=== PATIENT | male | born 1995 ===

== ENCOUNTER 2017-11-26 22:31 | Emergency (ER) | payer SELFPAY ==
[2017-11-26 23:24] VITALS: BP 144/65
[2017-11-27 02:32] LABS: Amorphous Crystals,Urine Few; Bacteria,Urine 1+ /HPF (Negative); Bilirubin,Urine NEG (Negative); Blood,Urine NEG (Negative); Color,Urine Yellow (Yellow); Mucus,Urine FEW /HPF; Nitrite,Urine NEG (Negative)
[2017-11-27 02:37] LABS: WBC,Urine < 1.0 /HPF (0.0-6.0)
== END 2017-11-27 02:30 | disposition left against medical advice (07) ==
LOC: ED 22:31
DX: R36.9 Urethral discharge, unspecified (principal); Z53.21 Procedure and treatment not carried out due to patient leaving prior to being seen by health care provider
CPT/HCPCS: 81001